=== PATIENT | male | born 1980 | race Caucasian/White ===

== ENCOUNTER 2016-09-25 09:23 | Day surgery (SDC) | payer OTHER ==
[2016-09-19 16:14] VITALS: BMI 24.1
[~2016-09-25 09:23] MED LIST: DEXAMETHASONE SOD PHOSPHATE 10 MG/ML 1 ML VIAL IV ONE; LACTATED RINGERS 1,000 ML IV SCH; ONDANSETRON 4 MG/2 ML VIAL IVP ONE; Pre Op ABX Message 1 EACH MISC MISCELLANE ONE
[2016-09-25] MEDS ORDERED: LIDOCAINE 1% 20 ML VIAL (10MG/ML) FOR IV START INTRADERMA ONE (09:52)
[2016-09-25] MEDS ORDERED: fentaNYL (PF) 50 MCG/ML 2 ML AMP IV ONE ×2 (10:18→10:33)
[2016-09-25] MEDS ORDERED: MIDAZOLAM 2 MG/2 ML VIAL ONE (11:42)
[2016-09-25] MEDS ORDERED: PROPOFOL 10 MG/ML 20 ML VIAL IV ONE (11:42)
[2016-09-25] MEDS ORDERED: ACETAMINOPHEN IV (For NPO) 1,000 MG/100 ML VIAL ONE (11:42)
[2016-09-25] MEDS ORDERED: LIDOCAINE 1% INJ 10MG/ML (20 ML MDV) ONE (11:42)
[2016-09-25] MEDS ORDERED: KETOROLAC 30 MG/ML 1 ML VIAL ONE (11:42)
[2016-09-25] MEDS ORDERED: fentaNYL (PF) 50 MCG/ML 2 ML AMP ONE (11:42)
[2016-09-25] MEDS ORDERED: BUPIVACAIN-EPI 0.25%-1:200,000 30 ML VIAL SQ ONE ×2 (11:43)
[2016-09-25] MEDS ORDERED: SODIUM CHLORIDE 0.9% 50 ML with ceFAZolin 2,000 MG IV ONE ×4 (11:50)
[2016-09-25 12:51] VITALS: TEMP 97.2
[2016-09-25] MEDS: HYDROmorphone 1 MG/ML 1 ML SYRINGE IVP PRN ×4 (13:25→13:45)
[2016-09-25 14:32] VITALS: RESP 16
[2016-09-25] MEDS ORDERED: HYDROcodone/APAP 10-325MG 1 EACH TAB PO ONE (14:44)
[2016-09-25 14:56] VITALS: BP 121/86; PULSE 74
--- NOTE | 2016-09-26 09:18 | OP ---
DATE OF SERVICE: 09/25/2016 SURGEON: SATYA DIMAS MD [employer]: PREOPERATIVE DIAGNOSIS: Left knee medial meniscal tear. POSTOPERATIVE DIAGNOSIS: 1. Left knee, normal medial meniscus. 2. Left knee thickened infrapatellar and medial shelf plica. OPERATION: Left knee arthroscopic partial arthroscopic lysis of adhesions. General endotracheal. ESTIMATED BLOOD LOSS: Minimal. Tourniquet: None. DRAINS: None. SPECIMENS REMOVED: COMPLICATIONS: None apparent. DISPOSITION: Postanesthesia care unit. INDICATIONS: Jas is a very pleasant 36-year-old male who has had ongoing left knee pain for quite a while. Physical examination and MRI consistent with medial knee pain. The MRI was for complex tear of the posterior horn of the medial meniscus. I had a long discussion with Jas regarding treatment options. He feels that he has failed conservative management and would like to proceed with operative intervention. Risks of the procedure were explained the patient which include, or not limited to risk of infection, nerve damage, bleeding, pain, and a small risk of deep vein thrombosis, which could lead to fatal pulmonary embolism. Patient understands the risks and wished to proceed with the surgical procedure. Examination under anesthesia: RANGE OF MOTION: Right full. Left full. Effusion: Right none. Left none. Ashley right normal with good endpoint. Left good endpoint. Pivot shift: Right grade 0, left grade 0. Posterior drawer: Right with good endpoint. Left with good endpoint. Varus laxity: Right none. Left none. Valgus laxity: Right none. Left none. External rotation: Right normal. Left normal limits peripheral. Arthroscopic findings: Suprapatellar pouch: Normal. Medial gutter: A very thickened medial shelf plica. Corresponding chondral abrasion the most medial aspect of the medial femoral condyle. Lateral gutters normal. Patella: Normal condylar surfaces. Trochlea: Diffuse grade 1 change in the central aspect of the trochlea. Patellar tracking: Normal. Medial femoral condyle: Normal condylar surfaces tibial plateau: Normal condylar surface. Medial meniscus was normal. The medial meniscus was thoroughly probed and there was no evidence of tearing lateral femoral condyle: Normal chondral surface. Lateral tibial plateau: Normal chondral surface. Lateral meniscus was normal. Anterior cruciate ligament: Normal. Posterior cruciate ligament: Normal. Infrapatellar notch: Thickened abundant infrapatellar plica. DESCRIPTION OF PROCEDURE: Patient was identified in preoperative holding area. Surgical site was marked by both the patient and myself. He was given 2 grams of Ancef IV for prophylactic purposes. He was then transferred to the operative suite where he was placed supine on the operating room table. General anesthetic was administered, dosed per the anesthesia department without apparent complication. Examination under anesthesia was then performed of both knees. The findings were noted above. Tourniquet was then placed high on the left upper thigh, well-padded in preparation for surgery. The tourniquet was not inflated throughout the entire procedure. Patient's left lower extremity was then prepped and draped usual sterile fashion. Standard surgical pause was then undertaken to ensure that we were operating on the correct site and that appropriate preoperative antibiotics had been given. All staff in the room were in agreement and we proceeded. The knee was then insufflated with 120 mL sterile saline solution. This was done to gradually distend the joint. Standard inferolateral portal was then made. Third the 30 degrees arthroscope was introduced into the suprapatellar pouch. The arthroscopic pump pressure was set at 60 mmHg and maintained at that level throughout the entire case. Next, utilizing an 18-gauge spinal needle, topically localize the placement, the inferomedial portal was made under direct visualization. Standard diagnostic arthroscopy of the knee then performed. The findings were noted as above. Attention was first drawn the infrapatellar notch. A very abundant thickened infrapatellar plica. There is also a very tight medial shelf plica as well. This was abrading over the medial femoral condyle. There was some chondral changes consistent with the abrasion on the most medial aspect of the medial femoral condyle. This was documented with arthroscopic imaging. Plica was then released with a biter and synovial shaver back to stable tissue. Hemostasis was achieved the ArthroCare wand. Attention was then drawn to the anterior cruciate ligament. The anterior cruciate ligament was also carefully probed and was found to be intact with no evidence of tearing. Attention was drawn to the medial compartment of the knee. There is suggestive of the complex tear of the posterior horn of the medial meniscus on his MRI. Meniscus was carefully probed. There is no evidence of meniscus tear either the superior or inferior surface of the meniscus. Meniscus was quite actually pristine in appearance. The arthroscope was then placed medial to the posterior cruciate ligament through the notch of the posterior medial compartment of the knee. There posterior root attachment was carefully inspected and found to be intact. The posterior horn meniscal capsular junction was also intact inspected and found to be intact. At this point in time, no further work was deemed necessary. The knee was thoroughly irrigated and then drained with an outflow cannula. The arthroscopic equipment was removed from the knee. The arthroscopic portals were then closed with 3-0 nylon interrupted suture. Sterile compressive dressings were then applied. All sponge and needle counts were deemed correct prior to closure. The patient tolerated the procedure without apparent complication. The tourniquet was not inflated throughout the entire procedure. He was transferred to the recovery room in stable condition.
== END 2016-09-25 15:01 | disposition home or self-care (01) ==
LOC: OR 09:23
PROVIDERS: ATTEND Orthopaedic Surgery Sports Medicine
DX: M23.8X2 Other internal derangements of left knee (principal); M67.52 Plica syndrome, left knee; F32.9 Major depressive disorder, single episode, unspecified; F39 Unspecified mood [affective] disorder; Z79.1 Long term (current) use of non-steroidal anti-inflammatories (NSAID); Z79.891 Long term (current) use of opiate analgesic; Z79.899 Other long term (current) drug therapy; Z88.5 Allergy status to narcotic agent; Z88.8 Allergy status to other drugs, medicaments and biological substances; Z87.891 Personal history of nicotine dependence
CPT/HCPCS: 29875; J2250; J1100; J2405; J2001; J3010; J1885; J1170; J0690; J0131; J2704